=== PATIENT | male | born 1965 | race Caucasian/White ===

== ENCOUNTER 2018-06-21 03:43 | Emergency (ER) | payer OTHER ==
[2018-06-21] MEDS ORDERED: ONDANSETRON HCL 4 MG/2 ML SOL IV ONE (04:06)
[2018-06-21] MEDS ORDERED: SODIUM CHLORIDE 0.9% 1000ML 1,000 ML IV ONE (04:06)
[2018-06-21] MEDS ORDERED: ONDANSETRON HCL 4 MG/2 ML SOL ONE (04:12)
[2018-06-21] MEDS ORDERED: ACETAMINOPHEN 325 MG PO ONE (04:18)
[2018-06-21] MEDS ORDERED: ACETAMINOPHEN 325 MG ONE (04:19)
[2018-06-21 04:20] LABS: BASOPHILS % (AUTO) 1 % (0-3); EOSINOPHILS % (AUTO) 1 % (0-9); HEMATOCRIT 46 % (39-53); HEMOGLOBIN 15.7 gm/dl (13.5-17.7); LYMPHOCYTES % (AUTO) 12.1 % (10-50); MEAN CORPUSCULAR HEMOGLOBIN 29.7 pg (27.0-32.0); MEAN CORPUSCULAR HGB CONC 34.1 gm/dl (32.0-36.0); MEAN CORPUSCULAR VOLUME 87 fL (80-100); MONOCYTES % (AUTO) 10.4 % (0-12); NEUTROPHILS % (AUTO) 76.1 % (37-80)
[2018-06-21 04:24] LABS: CALCIUM 8.8 mg/dl (8.5-10.1); CARBON DIOXIDE 23.2 mEq/L (21-32); CREATININE 1.35 mg/dl (0.80-1.30); POTASSIUM 3.7 mMol/L (3.5-5.1)
[2018-06-21 05:11] VITALS: BP 118/70; PULSE 98; RESP 16; TEMP 99.8; O2SAT 91
== END 2018-06-21 05:30 | disposition home or self-care (01) | DRG 866 ==
LOC: ED 03:43
DX: B34.9 Viral infection, unspecified (principal); R51 Headache; R50.9 Fever, unspecified; R05 Cough; R06.02 Shortness of breath
CPT/HCPCS: 36415; 71045; 80048; 85025; 96365; 96374; 99283; 99284; J2405